=== PATIENT | male | born 1950 | race Caucasian/White ===

== ENCOUNTER 2017-10-18 11:55 | Emergency (ER) | payer MEDICARE, BC ==
[2017-10-18 12:39] LABS: Hemoglobin 13.2 g/dL (14.0-18.0); Mean Corpuscular HGB CONC 33.5 g/dL (32.0-36.0); Mean Corpuscular Hemoglobin 31.4 pg (27.0-31.0); Mean Corpuscular Volume 93.8 fl (80.0-94.0); Mean Platelet Volume 6.9 fL (7.4-10.4); Platelet Count 240 thou/uL (130-400); RBC Distribution Width 12.6 % (11.5-14.5); Red Blood Cell (RBC) Count 4.22 mill/uL (4.70-6.10); White Blood Cell (WBC) Count 7.9 thou/uL (4.8-10.8)
[2017-10-18 13:01] LABS: ALT (SGPT) 23 U/L (8-55); AST (SGOT) 19 U/L (5-34); Albumin 3.9 g/dL (3.4-4.8); Alkaline Phosphatase 85 U/L (40-150); Anion Gap 11 mmol/L (10-20); BUN (Urea Nitrogen) 18 mg/dL (8.4-25.7); Bilirubin, Total 0.4 mg/dL (0.2-1.2); Calc. Creatinine Clearance 0 mL/min (70-130); Calcium 9.1 mg/dL (7.8-10.44); Carbon Dioxide 22 mmol/L (23-31); Chloride 108 mmol/L (98-107); Estimated GFR-MDRD 71; Globulin 2.4 g/dL (2.4-3.5); Glucose 97 mg/dL (80-115); Lipase 22 U/L (8-78); Potassium 4.3 mmol/L (3.5-5.1); Protein, Total 6.3 g/dL (5.8-8.1); Sodium 137 mmol/L (136-145)
[2017-10-18 13:02] LABS: Band 1 % (5-11); Eosinophils 3 % (0-10); Lymphocytes 47 % (21-51); MDiff Complete? YES; Monocytes 1 % (0-10); Neutrophil 31 % (42-75); PLT Morphology Comment Appears Adequate; RBC Morphology Normal; Reactive Lymphocytes 16 % (0-10)
[2017-10-18 13:05] LABS: CKMB 5.1 ng/mL (0-6.6); Troponin I Less than 0.010 ng/mL (< 0.028)
--- NOTE | 2017-10-18 14:06 | RAD ---
TWO VIEWS CHEST: HISTORY: Bilateral rib pain, x 1 month. COMPARISON: None. FINDINGS: Normal cardiac silhouette. Pulmonary vessels and hilum are normal. Costophrenic angles are clear. No masses or consolidation. No pneumothorax or osseous abnormalities. IMPRESSION: No acute cardiopulmonary process. POS: [facility]
== END 2017-10-18 15:27 | disposition home or self-care (01) ==
LOC: ERS 11:55
DX: R07.89 Other chest pain (principal); I10 Essential (primary) hypertension; Z87.891 Personal history of nicotine dependence
CPT/HCPCS: 36415; 71046; 80053; 82553; 83690; 84484; 85025; 85060; 85379; 93005

== ENCOUNTER 2017-10-25 08:58 | Emergency (ER) | payer MEDICARE, BC ==
[2017-10-25 09:42] LABS: Hemoglobin 14.7 g/dL (14.0-18.0); Mean Corpuscular HGB CONC 33.5 g/dL (32.0-36.0); Mean Corpuscular Hemoglobin 31.2 pg (27.0-31.0); Mean Corpuscular Volume 93.3 fl (80.0-94.0); Mean Platelet Volume 6.9 fL (7.4-10.4); Platelet Count 231 thou/uL (130-400); RBC Distribution Width 12.8 % (11.5-14.5); Red Blood Cell (RBC) Count 4.71 mill/uL (4.70-6.10); White Blood Cell (WBC) Count 7.3 thou/uL (4.8-10.8)
[2017-10-25 09:52] LABS: ALT (SGPT) 29 U/L (8-55); AST (SGOT) 27 U/L (5-34); Albumin 4.3 g/dL (3.4-4.8); Alkaline Phosphatase 87 U/L (40-150); Anion Gap 14 mmol/L (10-20); BUN (Urea Nitrogen) 19 mg/dL (8.4-25.7); Bilirubin, Total 0.6 mg/dL (0.2-1.2); Calc. Creatinine Clearance 0 mL/min (70-130); Calcium 9.1 mg/dL (7.8-10.44); Carbon Dioxide 23 mmol/L (23-31); Chloride 104 mmol/L (98-107); Estimated GFR-MDRD 59; Globulin 2.7 g/dL (2.4-3.5); Glucose 98 mg/dL (80-115); Lipase 13 U/L (8-78); Potassium 4.1 mmol/L (3.5-5.1); Sodium 137 mmol/L (136-145)
[2017-10-25 10:14] LABS: Band 6 % (5-11); Eosinophils 1 % (0-10); Lymphocytes 36 % (21-51); MDiff Complete? YES; Monocytes 10 % (0-10); Neutrophil 41 % (42-75); RBC Morphology Normal; Reactive Lymphocytes 6 % (0-10)
== END 2017-10-25 11:00 | disposition home or self-care (01) ==
LOC: ERS 08:58
DX: E86.0 Dehydration (principal); I10 Essential (primary) hypertension; Z87.891 Personal history of nicotine dependence; Z79.899 Other long term (current) drug therapy
CPT/HCPCS: 36415; 80053; 82550; 83690; 85025; 96360

== ENCOUNTER 2018-02-17 02:48 | Emergency (ER) | payer MEDICARE, BC ==
[2018-02-17 05:14] LABS: #Eosinphils 0.1 thou/uL (0.0-0.7); #Lymphocytes 3.4 thou/uL (1.20-3.40); #Monocytes 0.6 thou/uL (0.11-0.59); #Neutrophils 2.7 thou/uL (1.40-6.50); %Basophils 0.7 % (0.0-1.0); %Eosinophils 1.5 % (0.0-10.0); %Lymphocytes 49.6 % (21.0-51.0); %Monocytes 8.3 % (0.0-10.0); Hemoglobin 12.7 g/dL (14.0-18.0); Mean Corpuscular HGB CONC 32.9 g/dL (32.0-36.0); Mean Corpuscular Volume 94.4 fL (78.0-98.0); Mean Platelet Volume 7.3 fL (7.4-10.4); Platelet Count 258 thou/uL (130-400); RBC Distribution Width 12.8 % (11.5-14.5); White Blood Cell (WBC) Count 6.8 thou/uL (4.8-10.8)
[2018-02-17 05:22] LABS: ALT (SGPT) 15 U/L (8-55); AST (SGOT) 13 U/L (5-34); Albumin 3.8 g/dL (3.4-4.8); Alkaline Phosphatase 75 U/L (40-150); Anion Gap 10 mmol/L (10-20); BUN (Urea Nitrogen) 18 mg/dL (8.4-25.7); Bilirubin, Total 0.4 mg/dL (0.2-1.2); CK (CPK) 113 U/L (30-200); Calc. Creatinine Clearance 0 mL/min (70-130); Calcium 9.2 mg/dL (7.8-10.44); Carbon Dioxide 27 mmol/L (23-31); Chloride 106 mmol/L (98-107); Estimated GFR-MDRD 63; Globulin 2.5 g/dL (2.4-3.5); Glucose 97 mg/dL (80-115); Potassium 4.5 mmol/L (3.5-5.1); Protein, Total 6.3 g/dL (5.8-8.1); Sodium 138 mmol/L (136-145)
--- NOTE | 2018-02-17 09:08 | ULT ---
PRELIMINARY REPORT/[facility]/EMERGENTY AFTER-HOURS PROCEDURE US Duplex Left Lower Extremity Veins EXAM DATE/TIME: Exam ordered 02/17/2018 3:26 AM CLINICAL HISTORY: 67 years old, male; Pain; Leg, upper and other: Behind left knee; Patient HX: Patient ended long road trip 02/14, now left leg pain TECHNIQUE: Real-time duplex ultrasound scan of the left lower extremity veins integrating B-mode two dimensional vascular structure, Doppler spectral analysis, color flow Doppler imaging and compression. COMPARISON: No relevant prior studies available. FINDINGS: Deep veins: Unremarkable. No DVT in the visualized common femoral, femoral, proximal deep femoral or popliteal veins. The veins demonstrate normal color flow, are normally compressible, with normal phas ic flow and/or augmentation response. Superficial veins: Unremarkable. No thrombus in the visualized great saphenous vein. Soft tissues: No acute findings. No popliteal cyst. IMPRESSION: Normal left lower extremity duplex venous ultrasound. Thank you for allowing us to participate in the care of your patient. Dictated and Authenticated by: Hunter Martinez MD 02/17/2018 4:16 AM Central Time ([place] & [place]) FINAL REPORT VENOUS DOPPLER ULTRASOUND OF THE LEFT LOWER EXTREMITY: Date: 02/17/18 FINDINGS/IMPRESSION: I agree with the preliminary report given by Yamila. POS: [facility]
== END 2018-02-17 06:57 | disposition home or self-care (01) ==
LOC: ERS 02:48
DX: M79.652 Pain in left thigh (principal); I10 Essential (primary) hypertension; Z87.891 Personal history of nicotine dependence; Z79.899 Other long term (current) drug therapy
CPT/HCPCS: 36415; 80053; 82550; 85025

== ENCOUNTER 2019-11-22 15:50 | Observation (INO) | payer MEDICARE, BC ==
[2019-11-22] MEDS ORDERED: Aspirin Chewable 81 MG TAB ONE (16:19)
[2019-11-22] MEDS ORDERED: Nitroglycerin 2% Ointment 1 INCH/1 GM Packet ONE (16:19)
[2019-11-22 16:23] LABS: #Basophils 0.1 thou/uL (0.0-0.2); #Eosinphils 0.1 thou/uL (0.0-0.7); #Lymphocytes 3.6 thou/uL (1.20-3.40); #Monocytes 0.6 thou/uL (0.11-0.59); #Neutrophils 2.9 thou/uL (1.40-6.50); %Basophils 1.3 % (0.0-1.0); %Eosinophils 1.4 % (0.0-10.0); %Lymphocytes 48.8 % (21.0-51.0); %Monocytes 8.7 % (0.0-10.0); %Neutrophils 39.9 % (42.0-75.0); Hemoglobin 12.7 g/dL (14.0-18.0); Mean Corpuscular HGB CONC 33.2 g/dL (32.0-36.0); Mean Corpuscular Volume 93.3 fL (78.0-98.0); Mean Platelet Volume 7.2 fL (7.4-10.4); Platelet Count 232 thou/uL (130-400); RBC Distribution Width 12.7 % (11.5-14.5); Red Blood Cell (RBC) Count 4.12 mill/uL (4.70-6.10); White Blood Cell (WBC) Count 7.3 thou/uL (4.8-10.8)
--- NOTE | 2019-11-22 16:25 | RAD ---
XR Chest 1 View Portable HISTORY: Chest pain COMPARISON: 10/18/2017 FINDINGS: The heart size is normal. The lungs are well expanded without focal areas of consolidation, pneumothorax or pleural effusions. IMPRESSION: No radiographic evidence of acute cardiopulmonary process.
[2019-11-22] MEDS ORDERED: Iopamidol-370 76% 500 ML 1 ML ONE (16:34)
[2019-11-22 16:45] LABS: ALT (SGPT) 19 U/L (8-55); AST (SGOT) 22 U/L (5-34); Alkaline Phosphatase 87 U/L (40-110); Anion Gap 13 mmol/L (10-20); BUN (Urea Nitrogen) 25 mg/dL (8.4-25.7); Bilirubin, Total 0.5 mg/dL (0.2-1.2); CK (CPK) 416 U/L (30-200); Calc. Creatinine Clearance 0 mL/min (70-130); Calcium 9.1 mg/dL (7.8-10.44); Carbon Dioxide 24 mmol/L (23-31); Chloride 106 mmol/L (98-107); Estimated GFR-MDRD 47; Glucose 94 mg/dL (80-115); Lipase 26 U/L (8-78); Potassium 4.7 mmol/L (3.5-5.1); Sodium 138 mmol/L (136-145)
[2019-11-22 17:13] LABS: CKMB 7.2 ng/mL (0-6.6)
--- NOTE | 2019-11-22 17:23 | CT ---
Exam: CT angiogram of the chest HISTORY: Intermittent chest pain, worsening over the last week. Increased fatigue. COMPARISON: None TECHNIQUE: CT angiogram of the chest is performed in the axial plane. Three-dimensional reformatted i mages are submitted for interpretation FINDINGS: Mediastinum: No mass, lymphadenopathy or hematoma. HEART: Normal size. No significant pericardial fluid. Aorta: No aneurysm or dissection Upper solid abdominal viscera: Hypodensities in the right hepatic lobe are compatible with hepatic cy sts. Trachea and central bronchi: Patent Pleural spaces: No effusion Lung parenchyma: Interval dependent atelectatic changes and scarring. No consolidation or masses. Pneumothorax: None Osseous structures: No lytic or blastic lesions Pulmonary arteries: Adequate contrast opacification pulmonary arterial system to the level of lobar a rteries. No filling defect to suggest pulmonary embolism. Limited evaluation of the segmental and subsegmental arteries due to timing of contrast bolus. IMPRESSION: 1. No evidence of pulmonary artery embolism to the level of the lobar arteries.
[2019-11-22 18:53] VITALS: BMI 36.6
[2019-11-22] MEDS ORDERED: Ondansetron PF 4 MG/2 ML Vial IVP PRN (19:06)
[2019-11-22] MEDS ORDERED: Sodium Chloride 0.9% 1,000 ML IV SCH (19:06)
[2019-11-22] MEDS ORDERED: Ondansetron ODT 4 MG TAB SL PRN (19:06)
[2019-11-22] MEDS ORDERED: Nitroglycerin 0.4 MG TAB (25 Tab Bottle) PO PRN (19:18)
--- NOTE | 2019-11-22 19:27 | PDOC.HHP ---
Hospitalist HPI - History of Present Illness Chest pain History of Present Illness: This patient is a 69-year-old male who reports exertional chest pain. 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 He reports that he does well in the wintertime but in the summertime the exertion causes profuse sweating. He feels frequently like he may be dehydrated although he drinks ample amounts of fluids. The patient reports the chest pain is nagging with no radiation. No radiation to the jaw or to the left arm. 2 out of 10 at worst. Improved with nitroglycerin down to 1 out of 10. He also reports some upper extremity numbness which is intermittent and been present since he was in his 20s but may be getting slightly worse he does have some generalized fatigue when working in the heat. He also reports frequently feeling somewhat lightheaded and dizzy. Of note the patient is frequently bending over and lifting bricks or stone which can be extremely heavy. ED Course: Patient received nitroglycerin in the emergency department. He had 2 aspirins prior to presenting to the hospital. Hospitalist ROS - Review of Systems Constitutional: denies: fever, chills Respiratory: denies: cough, shortness of breath Gastrointestinal: reports: constipation Neurological: reports: numbness (Upper extremities) All other systems reviewed; all pertinent +/- noted in HPI/Subj - Medication Medications: Omeprazole 20 mg p.o. daily teraosiun 10 mg p.o. daily amlodipine/benazepril 5/20 mg p.o. daily Levothyroxine 88 mcg p.o. daily Hospitalist History - Past Medical History Cardiac: reports: HTN, Hyperlipidemia Gastrointestinal: reports: GERD Renal/: reports: Chronic renal insuff (Stage III), Benign prostatic enlarg. - Past Surgical History Past Surgical History: reports: Tonsillectomy, Other (C-spine fusion, laminectomy. Skin cancer excision.) - Family History Family History: reports: hypertension - Social History Smoking Status: Former smoker Tobacco Type: chewing tobacco Alcohol: reports: Occassional Drugs: reports: none Living Situation: With Family Activity level: independent ambulation Other Social History: Full code. Patient's would be his surrogate decision maker should that become necessary. - Exam General Appearance: NAD, awake alert Heart: RRR, no gallops, no rubs, normal peripheral pulses, II/IV Respiratory: CTAB, no wheezes, no rales, no ronchi, normal chest expansion, no tachypnea, normal percussion Gastrointestinal: soft, non-tender, non-distended, normal bowel sounds, no palpable masses, no hepatomegaly, no splenomegaly, no bruit Extremities: no cyanosis, no clubbing, 1+ LE edema Skin: normal turgor, no lesions, no rashes Musculoskeletal: normal tone Psychiatric: normal affect, normal behavior, A&O x 3 Hospitalist Results - Labs Result Diagrams: 11/22/19 16:15 11/22/19 16:15 Lab results: WBC 7.3 thou/uL (4.8-10.8) 11/22/19 16:15 Hgb 12.7 g/dL (14.0-18.0) L 11/22/19 16:15 Hct 38.4 % (42.0-52.0) L 11/22/19 16:15 MCV 93.3 fL (78.0-98.0) 11/22/19 16:15 Plt Count 232 thou/uL (130-400) 11/22/19 16:15 Neutrophils % 39.9 % (42.0-75.0) L 11/22/19 16:15 Sodium 138 mmol/L (136-145) 11/22/19 16:15 Potassium 4.7 mmol/L (3.5-5.1) 11/22/19 16:15 Chloride 106 mmol/L (98-107) 11/22/19 16:15 Carbon Dioxide 24 mmol/L (23-31) 11/22/19 16:15 BUN 25 mg/dL (8.4-25.7) 11/22/19 16:15 Creatinine 1.49 mg/dL (0.7-1.3) H 11/22/19 16:15 Glucose 94 mg/dL (80-115) 11/22/19 16:15 Calcium 9.1 mg/dL (7.8-10.44) 11/22/19 16:15 Total Bilirubin 0.5 mg/dL (0.2-1.2) 11/22/19 16:15 AST 22 U/L (5-34) 11/22/19 16:15 ALT 19 U/L (8-55) 11/22/19 16:15 Alkaline Phosphatase 87 U/L (40-110) 11/22/19 16:15 Creatine Kinase 416 U/L (30-200) H 11/22/19 16:15 CK-MB (CK-2) 7.2 ng/mL (0-6.6) H* 11/22/19 16:15 Troponin I 0.029 ng/mL (< 0.028) H 11/22/19 16:15 B-Natriuretic Peptide 10.9 pg/mL (0-100) 11/22/19 16:15 Serum Total Protein 6.0 g/dL (5.8-8.1) 11/22/19 16:15 Albumin 4.0 g/dL (3.4-4.8) 11/22/19 16:15 Lipase 26 U/L (8-78) 11/22/19 16:15 - EKG Interpretation EKG: Nonischemic Hospitalist H&P A/P - Problem (1) Chest pain Code(s): R07.9 - CHEST PAIN, UNSPECIFIED Status: Acute (2) Hypertension Code(s): I10 - ESSENTIAL (PRIMARY) HYPERTENSION Status: Chronic (3) Hyperlipidemia Code(s): E78.5 - HYPERLIPIDEMIA, UNSPECIFIED Status: Chronic (4) Chronic kidney disease, stage III (moderate) Code(s): N18.3 - CHRONIC KIDNEY DISEASE, STAGE 3 (MODERATE) Status: Chronic (5) Chronic anemia Code(s): D64.9 - ANEMIA, UNSPECIFIED Status: Chronic (6) BPH (benign prostatic hyperplasia) Code(s): N40.0 - BENIGN PROSTATIC HYPERPLASIA WITHOUT LOWER URINRY TRACT SYMP Status: Chronic (7) GERD (gastroesophageal reflux disease) Code(s): K21.9 - GASTRO-ESOPHAGEAL REFLUX DISEASE WITHOUT ESOPHAGITIS Status: Chronic (8) Hypothyroidism Code(s): E03.9 - HYPOTHYROIDISM, UNSPECIFIED Status: Chronic - Plan Plan: Chest pain: Patient has slight indeterminate elevation of the troponin and CPK. Given his outside work he may have a touch of rhabdomyolysis accounting for the CPK. We will keep him on telemetry. Continue with serial troponins. Continue with the topical Nitropaste. He certainly has some risk factors for coronary disease. Assuming troponins remain reasonable we will anticipate an exercise treadmill test in the morning. Patient did have a negative treadmill test about 3 years ago. He has received aspirin for the day. Hypertension: Patient has chronic hypertension we will continue with his home medications of amlodipine/benazepril. Hyperlipidemia: Patient has been intolerant to statins because of associated myalgias. We will recheck a fasting lipid panel in the morning to see where he stands. Chronic kidney disease stage III: Patient was unaware of his history of chronic kidney disease. Labs indicate this goes back to 2011. Appears to be stable since that time. Hypothyroidism: Continue with his home dose of levothyroxine. BPH: Continue terazosin GERD: Continue PPI. Chronic anemia: Likely secondary to his chronic kidney disease. Again this is been present for quite some time and essentially at his baseline.
[2019-11-22 20:50] LABS: Troponin I 0.023 ng/mL (< 0.028)
[2019-11-22] MEDS ORDERED: Senokot 8.6 MG TAB PO SCH (22:15)
[2019-11-22 22:28] LABS: Troponin I 0.018 ng/mL (< 0.028)
[2019-11-23 05:52] LABS: Cardiac Risk 5.7 (Less than 4.5)
[2019-11-23 07:54] VITALS: TEMP 97.4
[2019-11-23 11:20] VITALS: BP 154/70
--- NOTE | 2019-11-23 14:00 | NM ---
EXAM: Cardiac SPECT HISTORY: Chest pain, hypertension, dyslipidemia, smoker PROTOCOL: Stress only, single isotope TYPE OF STRESS: Exercise stress was monitored and interpreted by Neda Blum nurse practitioner RADIOPHARMACEUTICAL: 30 mCi technetium 99m-sestamibi injected intravenously FINDINGS: Homogeneous tracer distribution is seen in the myocardial segments on the post stress images. Gated SPECT LVEF: 71% Wall motion exam: Normal IMPRESSION: Normal post stress myocardial perfusion scan.
--- NOTE | 2019-11-23 22:28 | DIS ---
DATE OF ADMISSION: 11/22/2019 DATE OF DISCHARGE: 11/23/2019 DISCHARGE DIAGNOSES: 1. Chest pain. 2. Hypertension. 3. Hyperlipidemia. 4. Chronic kidney disease, stage 3. 5. Chronic anemia likely secondary to chronic kidney disease. 6. BPH. 7. Gastroesophageal reflux disease. 8. Hypothyroidism. 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 He reports that he is very intolerant to working in the heat and becomes profoundly exhausted after about 3 hours of work to the point he has trouble even getting back into his truck. He does have some exertional chest discomfort, which sounds somewhat atypical. Nonetheless, he presented to the emergency department. He did have a troponin of 0.029, which is barely in the indeterminate range. HOSPITAL COURSE: The patient was admitted to the hospital. He had serial troponins, which were essentially flat but down or trending at 0.023, 0.018. He remained stable on telemetry. Fasting lipid panel revealed a cholesterol of 183, triglycerides 152, LDL of 121, and HDL of 32. The patient is unfortunately intolerant to statins as he was on them for years, but could not continue them. His GFR was 47, consistent with prior numbers and consistent with a diagnosis of chronic kidney disease stage 3. The patient had nitroglycerin paste placed in the emergency department and essentially remained chest pain-free throughout his stay. He did undergo a stress test on the morning of 11/23/2019, which revealed no evidence of ischemia and a normal ejection fraction at 71%. The patient was felt to be stable for discharge. PHYSICAL EXAMINATION: VITAL SIGNS: Temperature was 97.4 pulse 54 to 57, respirations 14, O2 saturation 98% on room air, and blood pressure 154/70. GENERAL: He was slightly obese. Awake and alert. HEART: Regular. LUNGS: Clear. ABDOMEN: Benign. EXTREMITIES: Minimal trace edema. DISPOSITION: The patient is discharged home. DIET: He will be on a heart healthy diet. ACTIVITY: As tolerated. FOLLOWUP: He is to follow up with Delores Parker, his PCP, and he can return to the hospital at anytime he needs to do so. DISCHARGE MEDICATIONS: Include: 1. Terazosin 10 mg p.o. daily. 2. Metamucil p.r.n. 3. Omeprazole 20 mg daily. 4. Levothyroxine 88 mcg daily. 5. Lotrel 10/10 one p.o. daily. Job ID: [id number]
== END 2019-11-23 15:41 | disposition home or self-care (01) ==
LOC: ERS 15:50 → 2SE 17:00
PROVIDERS: ADMIT Internal Medicine; ATTEND Internal Medicine
DX: R07.9 Chest pain, unspecified (principal); I12.9 Hypertensive chronic kidney disease with stage 1 through stage 4 chronic kidney disease, or unspecified chronic kidney disease; N18.3 Chronic kidney disease, stage 3 (moderate); E78.5 Hyperlipidemia, unspecified; K21.9 Gastro-esophageal reflux disease without esophagitis; E03.9 Hypothyroidism, unspecified; D64.9 Anemia, unspecified; N40.0 Benign prostatic hyperplasia without lower urinary tract symptoms; Z79.899 Other long term (current) drug therapy; Z87.891 Personal history of nicotine dependence
CPT/HCPCS: 71045; 71275; 78452; 80053; 80061; 82550; 82553; 83690; 83880; 84484 ×2; 85025; 85379; 93005; 93017; 94760; 96360; 99285; A9500; 36415; 96361; G0378; Q9967

== ENCOUNTER 2020-04-10 09:18 | Outpatient (CLI) | payer MEDICARE, BC ==
--- NOTE | 2020-04-10 11:09 | RAD ---
LUMBAR SPINE 4 VIEWS: HISTORY: Lumbar radiculopathy. FINDINGS: Lumbar vertebrae maintain height and alignment. Moderate degenerative hypertrophic changes are seen with anterior and lateral osteophytes. Bridging osteophytes are seen laterally on the right at L1-2. Prominent facet hypertrophy at all levels. Loss of disk space at L4-5 and L5-S1. No evidence of s pondylolisthesis. Alignment is maintained with flexion and extension. IMPRESSION: Moderate degenerative changes as described. POS: [facility]
== END 2020-04-10 09:19 | disposition home or self-care (01) ==
LOC: RAD 09:18
PROVIDERS: ATTEND Physician Assistant
DX: M47.26 Other spondylosis with radiculopathy, lumbar region (principal)
CPT/HCPCS: 72100

== ENCOUNTER 2020-12-09 15:33 | Emergency (ER) | payer MEDICARE, BC | END 2020-12-09 21:35 | disposition home or self-care (01) | LOC: ERS 15:33 | DX: R07.89 Other chest pain (principal); I10 Essential (primary) hypertension; Z79.899 Other long term (current) drug therapy | CPT/HCPCS: 36415; 71045; 80053; 83690; 84484; 85025; 85379; 93005 ==

== ENCOUNTER 2024-07-10 11:16 | Observation (INO) | payer MEDICARE ==
[~2024-07-10 11:16] MED LIST: Iopamidol-370 76% 500 ML MDV (1 ML CHARGE) ONE
[2024-07-10 12:33] LABS: #Basophils 0.04 10x3/uL (0.0-0.2); %Basophils 0.6 % (0.0-1.0); %Eosinophils 0.6 % (0.0-10.0); %Lymphocytes 43.4 % (21.0-51.0); %Neutrophils 49.3 % (42.0-75.0); Hematocrit 41.9 % (42.0-52.0); Mean Corpuscular HGB CONC 33.4 g/dL (32.0-36.0); Mean Corpuscular Hemoglobin 30.6 pg (27.0-31.0); Mean Corpuscular Volume 91.7 fL (78.0-98.0); Mean Platelet Volume 9.5 fL (7.4-10.4); Platelet Count 254 10x3/uL (130-400); RBC Distribution Width 13.6 % (11.5-14.5); Red Blood Cell (RBC) Count 4.57 mill/uL (4.70-6.10)
[2024-07-10 12:51] LABS: ALT (SGPT) 16 U/L (Less than 45); AST (SGOT) 23 U/L (11-34); Albumin 4.2 g/dL (3.1-4.5); Alkaline Phosphatase 93 U/L (40-110); Anion Gap 13 mmol/L (10-20); BUN (Urea Nitrogen) 20 mg/dL (8.4-25.7); Bilirubin, Total 0.6 mg/dL (0.3-1.2); Calc. Creatinine Clearance 0 mL/min (70-130); Calcium 9.5 mg/dL (7.8-10.44); Carbon Dioxide 24 mmol/L (23-31); Chloride 105 mmol/L (98-107); Estimated GFR 69; Globulin 2.9 g/dL (2.4-3.5); Glucose 87 mg/dL (83-110); Potassium 4.5 mmol/L (3.5-5.1); Protein, Total 7.1 g/dL (5.8-8.1); Sodium 137 mmol/L (136-145)
[2024-07-10 12:54] LABS: Troponin I Less than 0.010 ng/mL (< 0.028)
[2024-07-10] MEDS ORDERED: hydrALAZINE 20 MG/ML VIAL SLOW IVP PRN (15:48)
[2024-07-10] MEDS ORDERED: Calcium Carbonate 500 MG ChewTAB PO PRN (15:48)
[2024-07-10] MEDS ORDERED: Bisacodyl 5 MG TAB PO PRN (15:48)
[2024-07-10] MEDS ORDERED: Ondansetron PF 4 MG/2 ML Vial IVP PRN (15:48)
[2024-07-10] MEDS ORDERED: Senokot S 8.6-50 MG TAB PO PRN (15:48)
[2024-07-10] MEDS ORDERED: Ondansetron ODT 4 MG TAB PO PRN (15:48)
[2024-07-10] MEDS ORDERED: Acetaminophen 650 MG Suppository PR PRN (15:48)
[2024-07-10] MEDS: Aspirin 325 MG TAB PO SCH (18:43)
[2024-07-10 18:57] VITALS: BMI 31.6
[2024-07-10] MEDS: Atorvastatin Calcium 40 MG TAB PO SCH (21:00)
[2024-07-10] MEDS: Terazosin HCl 5 MG CAP PO SCH (22:37)
[2024-07-10] MEDS: Amlodipine 5 MG TAB PO SCH (22:38)
[2024-07-10] MEDS: Lisinopril 20 MG TAB PO SCH (22:39)
[2024-07-10] MEDS: Heparin 5,000 UNITS/ML VIAL SC SCH (22:39)
[2024-07-11 04:28] LABS: #Basophils 0.03 10x3/uL (0.0-0.2); %Basophils 0.5 % (0.0-1.0); %Lymphocytes 54.3 % (21.0-51.0); %Monocytes 10.7 % (0.0-10.0); %Neutrophils 32.3 % (42.0-75.0); Hematocrit 37.1 % (42.0-52.0); Hemoglobin 12.6 g/dL (14.0-18.0); Mean Corpuscular Hemoglobin 31.3 pg (27.0-31.0); Mean Corpuscular Volume 92.1 fL (78.0-98.0); Mean Platelet Volume 9.8 fL (7.4-10.4); Platelet Count 234 10x3/uL (130-400); RBC Distribution Width 13.6 % (11.5-14.5); Red Blood Cell (RBC) Count 4.03 mill/uL (4.70-6.10)
[2024-07-11 04:44] LABS: Anion Gap 11 mmol/L (10-20); BUN (Urea Nitrogen) 17 mg/dL (8.4-25.7); Calc. Creatinine Clearance 92 mL/min (70-130); Calcium 9.1 mg/dL (7.8-10.44); Carbon Dioxide 25 mmol/L (23-31); Cardiac Risk 4.1 (Less than 4.5); Chloride 104 mmol/L (98-107); Cholesterol 154 mg/dl (< 200 Desired); Estimated GFR 72; Glucose 85 mg/dL (83-110); HDL Cholesterol 38 mg/dL (>60 Neg Risk); LDL Cholesterol, Calculated 100 mg/dL; Potassium 4.3 mmol/L (3.5-5.1); Sodium 136 mmol/L (136-145); Triglycerides 78 mg/dL (Less than 150)
[2024-07-11] MEDS: Levothyroxine Sodium 88 MCG TAB PO SCH (05:34)
[2024-07-11] MEDS: FLU (Fluad Triv) TS24-25 (65UP)/MF59C/PF 45 MCG/0.5 ML Syringe IM ONE (05:35)
[2024-07-11] MEDS: Acetaminophen 325 MG TAB PO PRN (06:29)
[2024-07-11] MEDS ORDERED: Electrolyte Replacement Protocol 1 EACH FS SCH (08:00)
[2024-07-11] MEDS ORDERED: Lisinopril 20 MG TAB PO SCH (09:00)
[2024-07-11] MEDS: Pantoprazole 40 MG DR.TAB PO SCH (09:32)
[2024-07-11] MEDS: Aspirin 81 mg Enteric Coated Tablet PO SCH (09:32)
[2024-07-11] MEDS: Amlodipine 5 MG TAB PO SCH (10:20)
[2024-07-11] MEDS: Polyethylene Glycol 3350 17 GM Packet PO PRN (14:02)
[2024-07-11] MEDS: Clopidogrel Bisulfate 75 MG TAB PO SCH (14:02)
[2024-07-11 18:20] VITALS: BP 149/68; TEMP 97.9
[2024-07-12] MEDS ORDERED: Ezetimibe 10 MG TAB PO SCH (09:00)
[2024-07-12] MEDS ORDERED: Clopidogrel Bisulfate 75 MG TAB PO SCH (09:00)
== END 2024-07-11 18:23 | disposition home or self-care (01) ==
LOC: ERS 11:16 → 2SE 15:11
PROVIDERS: ADMIT Hospitalist; ATTEND Internal Medicine
DX: I65.22 Occlusion and stenosis of left carotid artery (principal); H53.2 Diplopia; E78.5 Hyperlipidemia, unspecified; E03.9 Hypothyroidism, unspecified; N40.0 Benign prostatic hyperplasia without lower urinary tract symptoms; K21.9 Gastro-esophageal reflux disease without esophagitis; I12.9 Hypertensive chronic kidney disease with stage 1 through stage 4 chronic kidney disease, or unspecified chronic kidney disease; N18.30 Chronic kidney disease, stage 3 unspecified; D63.1 Anemia in chronic kidney disease; E66.9 Obesity, unspecified; Z68.31 Body mass index [BMI] 31.0-31.9, adult; Z98.890 Other specified postprocedural states; Z90.89 Acquired absence of other organs; Z87.891 Personal history of nicotine dependence; Z79.890 Hormone replacement therapy; Z79.899 Other long term (current) drug therapy; Z79.82 Long term (current) use of aspirin; Z88.8 Allergy status to other drugs, medicaments and biological substances
CPT/HCPCS: 70450; 70496; 70498; 70551; 71045; 80048; 80053; 80061; 84484; 85025 ×2; 93005; 93306; 96372 ×2; 97116; 99285; G0378 ×3; J1644 ×2; Q9967; 36415